=== PATIENT | male | born 1945 | race Caucasian/White ===

== ENCOUNTER 2024-02-14 07:03 | Day surgery (SDC) | payer MEDICARE, OTHER, SELFPAY ==
[2024-02-14] VITALS (8 sets, daily range): BP systolic 97–155; BP diastolic 56–76; PULSE 45–62; RESP 12–16; TEMP 36.2; O2SAT 94–96
[2024-02-14] MEDS: LACTATED RINGERS 1,000 ML 42 ML IV (07:47)
--- NOTE | 2024-02-14 08:32 | PM.HP.1 ---
History of Present Illness History of Present Illness Date Patient Seen: 02/14/24 Chief complaint: Colonoscopy Narrative: History of polyps [facility] Medical History (Updated 02/14/24 @ 07:32 by Ruth Wilkinson RN) Squamous cell carcinoma GERD (gastroesophageal reflux disease) Hypercholesteremia Hypertension Surgical History (Updated 02/14/24 @ 07:32 by Ruth Wilkinson RN) History of robot-assisted laparoscopic radical prostatectomy Social History Smoking Status: Never smoker alcohol intake: current Meds Home Medications and Allergies Home Medications Medication Instructions Recorded Confirmed Type amlodipine 5 mg tablet 5 mg PO DAILY 02/14/24 02/14/24 History hydrochlorothiazide 12.5 mg tablet 12.5 mg PO DAILY 02/14/24 02/14/24 History omeprazole 20 mg capsule,delayed 20 mg PO DAILY 02/14/24 02/14/24 History release pravastatin 20 mg tablet 20 mg PO DAILY 02/14/24 02/14/24 History Allergies Allergy/AdvReac Type Severity Reaction Status Date / Time codeine AdvReac Severe Abdominal Verified 02/14/24 07:33 Pain Exam Vital Signs (past 8 hours): - 02/14/24 07:45 Temperature 97.2 F L Pulse Rate 58 L Respiratory Rate 16 Blood Pressure 144/67 H Pulse Oximetry 96 Oxygen Delivery Method Room Air Oxygen Delivery Method Room Air Narrative Exam Narrative: Oropharynx free of lesions Chest clear to auscultation percussion Cardiac exam reveals no S3 or murmur Assessment & Plan Assessment & Plan narrative: History of adenomatous colon polyps need for follow-up colonoscopy. Risks, benefits, alternatives have been explained. This will probably be patient's last colonoscopy.
--- NOTE | 2024-02-14 08:34 | PM.OP.COLON ---
Operative Date/Time/Diagnoses Date of procedure: 02/14/24 Pre-op diagnosis: See indication and findings Procedure & Clinicians Study performed: Colonoscopy Indications: History of adenomatous colon polyps Surgeon: Charu Frey Procedure Notes Procedure in detail: After informed consent was obtained the patient was placed in left lateral decubitus position. The video colonoscope was introduced the rectum slowly advanced cecum. Preparation was good. On slow withdrawal mucosa was carefully examined. The scope was removed. The patient tolerated procedure well. Blood loss none Complications none Sedation mac Findings 1. Severe sigmoid diverticulosis and tortuosity 2. Otherwise negative colonoscopy to cecum Patient will not need follow-up colonoscopy in the future.
== END 2024-02-14 09:51 | disposition home or self-care (01) ==
PROVIDERS: PCP Family Medicine; Referring Provider Internal Medicine Gastroenterology; Visit Provider Internal Medicine Gastroenterology
PROC: 0DJD8ZZ Inspection of Lower Intestinal Tract, Via Natural or Artificial Opening Endoscopic (ICD-10-PCS; CPT 45378; principal; 2024-02-14 08:30)
DX: Z12.11 Encounter for screening for malignant neoplasm of colon (principal); Z86.010 Personal history of colon polyps; K57.30 Diverticulosis of large intestine without perforation or abscess without bleeding
CPT/HCPCS: G0105; J2704